=== PATIENT | female | born 1995 | race Caucasian/White ===

== ENCOUNTER 2017-04-07 23:12 | Emergency (ER) | payer MEDICAID ==
[~2017-04-07] VITALS: Ht 170.2 cm; Wt 75.0 kg
[2017-04-07 23:15] VITALS: BP 179/108; PULSE 64; RESP 16; TEMP 99.1; O2SAT 98
[2017-04-07 23:45] VITALS: RESP 18; O2SAT 98
[2017-04-07] MEDS ORDERED: SODIUM CHLORIDE 0.9% FLUSH 10 ML FLUSH IVF PRN (23:45)
[2017-04-07 23:58] LABS: AUTOMATED NEUTROPHIL # 4.5 TH/MM3 (1.8-7.7); BASOPHIL # 0.1 TH/MM3 (0-0.2); BASOPHIL % 0.7 % (0.0-2.0); EOSINOPHIL # 0.2 TH/MM3 (0-0.4); EOSINOPHIL % 2.3 % (0.0-4.0); HEMATOCRIT 34.9 % (35.0-46.0); HEMO FLAGS DIFF FINAL; LYMPH % 34.7 % (9.0-44.0); LYMPHOCYTE # 2.8 TH/MM3 (1.0-4.8); MEAN CELL VOLUME 84.9 FL (80.0-100.0); MEAN CORPUSCULAR HEMOGLOBIN 28.4 PG (27.0-34.0); MEAN CORPUSCULAR HGB CONC 33.5 % (32.0-36.0); MONO % 6.5 % (0.0-8.0); NEUT % 55.8 % (16.0-70.0); PLATELET COUNT 272 TH/MM3 (150-450); RED BLOOD COUNT 4.11 MIL/MM3 (4.00-5.30); RED CELL DISTRIBUTION WIDTH 16.3 % (11.6-17.2); WHITE BLOOD COUNT 8.1 TH/MM3 (4.0-11.0)
[2017-04-08 00:16] LABS: APTT (PATIENT) 26.3 SEC (24.3-30.1); INTERNATIONAL NORMALIZED RATIO 0.9 RATIO; PROTHROMBIN TIME - PATIENT 9.9 SEC (9.8-11.6)
[2017-04-08 00:24] LABS: ALT (GPT) 29 U/L (10-53); ANION GAP 9 MEQ/L (5-15); AST (GOT) 19 U/L (15-37); BICARBONATE 27.9 MEQ/L (21.0-32.0); BLOOD UREA NITROGEN 18 MG/DL (7-18); CHLORIDE 106 MEQ/L (98-107); GLOMERULAR FILTRATION RATE 57 ML/MIN (>89); POTASSIUM 3.8 MEQ/L (3.5-5.1); SODIUM (NA) 143 MEQ/L (136-145)
[2017-04-08 00:25] LABS: ALKALINE PHOSPHATASE 77 U/L (45-117); TOTAL BILIRUBIN ADULT 0.1 MG/DL (0.2-1.0)
--- NOTE | 2017-04-08 00:25 | RADRPT ---
EXAM DATE/TIME: 04/07/2017 23:52 [place] COMPARISON: No previous studies available for comparison. INDICATIONS : Chest pain. MEDICAL HISTORY : None. SURGICAL HISTORY : None. ENCOUNTER: Initial ACUITY: 1 day PAIN SCORE: 0/10 LOCATION: Bilateral chest FINDINGS: A single view of the chest demonstrates the lungs to be symmetrically aerated without evidence of mas s, infiltrate or effusion. The cardiomediastinal contours are unremarkable. Osseous structures are intact. CONCLUSION: The lungs are clear. Miko Rutledge MD on April 08, 2017 at 0:22 Board Certified Radiologist. This report was verified electronically.
[2017-04-08 00:26] LABS: CREATINE KINASE 92 U/L (26-192)
--- NOTE | 2017-04-08 01:15 | PD ---
HPI Chief Complaint: Chest Pain Time Seen by Provider: 23:42 Travel History International Travel<30 days: No Contact w/Intl Traveler<30days: No Traveled to known affect area: No History of Present Illness HPI C/O PALPITATIONS, ONSET SEVERAL HOURS AGO LASTED A FEW MINUTES DURING WHICH SHE DEVELOPED SOME CHEST PRESSURE, NO CHEST DISCOMFORT NOW, NO PALPITATIONS NOW BUT WANTED TO GET EVALUATED...PER PATIENT SHE DELIVERED ABOUT 3 MONTHS AGO OR SO. PFSH Past Medical History Kidney Stones: Yes Immunizations Current: Yes ?: Not LMP: 5 WEEKS AGO Social History Alcohol Use: No Tobacco Use: No Substance Use: No Allergies-Medications (Allergen,Severity, Reaction): Coded Allergies: No Known Allergies (Unverified , 04/07/17) Review of Systems Except as stated in HPI: all other systems reviewed are Neg Cardiovascular: Positive: Palpitations Physical Exam Narrative GENERAL: SKIN: Warm and dry. HEAD: Atraumatic. Normocephalic. EYES: Pupils equal and round. No scleral icterus. No injection or drainage. ENT: No nasal bleeding or discharge. Mucous membranes pink and moist. NECK: Trachea midline. No JVD. CARDIOVASCULAR: Regular rate and rhythm. RESPIRATORY: No accessory muscle use. Clear to auscultation. Breath sounds equal bilaterally. GASTROINTESTINAL: Abdomen soft, non-tender, nondistended. Hepatic and splenic margins not palpable. MUSCULOSKELETAL: Extremities without clubbing, cyanosis, or edema. No obvious deformities. NEUROLOGICAL: Awake and alert. No obvious cranial nerve deficits. Motor grossly within normal limits. Five out of 5 muscle strength in the arms and legs. Normal speech. PSYCHIATRIC: Appropriate mood and affect; insight and judgment normal. Data Data Last Documented VS Vital Signs Date Time Temp Pulse Resp B/P Pulse Ox O2 Delivery O2 Flow Rate FiO2 04/07/17 23:45 98 Nasal Cannula 2 04/07/17 23:45 18 04/07/17 23:20 80 04/07/17 23:15 99.1 179/108 Orders Electrocardiogram (04/07/17 23:43) Ckmb (Isoenzyme) Profile (04/07/17 23:43) Complete Blood Count With Diff (04/07/17 23:43) Comprehensive Metabolic Panel (04/07/17 23:43) Prothrombin Time / Inr (Pt) (04/07/17 23:43) Act Partial Throm Time (Ptt) (04/07/17 23:43) Troponin I (04/07/17 23:43) Lipase (04/07/17 23:43) Ecg Monitoring (04/07/17 23:43) Bilateral Bp Monitoring (04/07/17 23:43) Iv Access Insert/Monitor (04/07/17 23:43) Oximetry (04/07/17 23:43) Oxygen Administration (04/07/17 23:43) Sodium Chloride 0.9% Flush (Ns Flush) (04/07/17 23:45) Chest, Single Ap (04/07/17 23:49) Ed Urine Pregnancytest Poc (04/07/17 23:49) Drug Screen, Random Urine (04/07/17 23:49) Alcohol (Ethanol) (04/07/17 23:49) Salicylates (Aspirin) (04/07/17 23:49) Tylenol (Acetaminophen) (04/07/17 23:49) Labs Laboratory Tests Test 04/07/17 23:40 White Blood Count 8.1 TH/MM3 Red Blood Count 4.11 MIL/MM3 Hemoglobin 11.7 GM/DL Hematocrit 34.9 % Mean Corpuscular Volume 84.9 FL Mean Corpuscular Hemoglobin 28.4 PG Mean Corpuscular Hemoglobin 33.5 % Concent Red Cell Distribution Width 16.3 % Platelet Count 272 TH/MM3 Mean Platelet Volume 8.9 FL Neutrophils (%) (Auto) 55.8 % Lymphocytes (%) (Auto) 34.7 % Monocytes (%) (Auto) 6.5 % Eosinophils (%) (Auto) 2.3 % Basophils (%) (Auto) 0.7 % Neutrophils # (Auto) 4.5 TH/MM3 Lymphocytes # (Auto) 2.8 TH/MM3 Monocytes # (Auto) 0.5 TH/MM3 Eosinophils # (Auto) 0.2 TH/MM3 Basophils # (Auto) 0.1 TH/MM3 CBC Comment DIFF FINAL Differential Comment Prothrombin Time 9.9 SEC Prothromb Time International 0.9 RATIO Ratio Activated Partial 26.3 SEC Thromboplast Time Sodium Level 143 MEQ/L Potassium Level 3.8 MEQ/L Chloride Level 106 MEQ/L Carbon Dioxide Level 27.9 MEQ/L Anion Gap 9 MEQ/L Blood Urea Nitrogen 18 MG/DL Creatinine 1.17 MG/DL Estimat Glomerular Filtration 57 ML/MIN Rate Random Glucose 90 MG/DL Calcium Level 10.0 MG/DL Total Bilirubin 0.1 MG/DL Aspartate Amino Transf 19 U/L (AST/SGOT) Alanine Aminotransferase 29 U/L (ALT/SGPT) Alkaline Phosphatase 77 U/L Total Creatine Kinase 92 U/L Troponin I LESS THAN 0.02 NG/ML Total Protein 8.2 GM/DL Albumin 4.4 GM/DL Lipase 134 U/L MDM Medical Decision Making Medical Screen Exam Complete: Yes Emergency Medical Condition: Yes Medical Record Reviewed: Yes Interpretation(s) SINUS IZZY 56, NL INTERVALS, IRBBB PATTERN...NO STEMI PATTERN NOTED Differential Diagnosis ATYPICAL LA V AFIB/AFLUTTER V ANEMIA V DEHYDRATION V PNA VS PTX VS ELECTROLYTE ABNL Narrative Course PATIENT REMAINED STABLE AND WITH VSS. DURING OBSERVATION PERIOD NO DYSRHYTHMIAS OBSERVED WHILE ON MONITOR...NO E/O ANEMIA/PNA/PTX/ELECTROLYTE ABNL AT THIS POINT ONLY E/O DEHYDRATION WHICH WAS REPLACED WITH 1 L NS. ADVISED PATIENT TO FOLLOW UP WITH PCP FOR REFERRAL TO [facility] FOR ECHO/HOLTER MONITOR EVALUATION, PATIENT ACKNOWLEDGE PLAN. Diagnosis Primary Impression: PALPITATIONS RESOLVED Additional Impression: DEHYDRATION Patient Instructions: Dehydration (ED), General Instructions, Palpitations (ED) Disposition: 01 DISCHARGE HOME Condition: Stable Edwin Lara MD Apr 08, 2017 01:15
--- NOTE | 2017-04-08 23:16 | EKG ---
Date Performed: 04/07/2017 Time Performed: 23:27:32 PTAGE: 21 years EKG: SINUS BRADYCARDIA INCOMPLETE RIGHT BUNDLE BRANCH BLOCK BORDERLINE ECG NO PREVIOUS TRACING DOCTOR: Jean-Claude Ruiz Interpretating Date/Time 04/08/2017 23:14:19
[2017-04-09 01:16] LABS: ACETAMINOPHEN LESS THAN 2.0 MCG/ML (10.0-30.0)
== END 2017-04-08 03:43 | disposition home or self-care (01) ==
LOC: NEPC 23:12
DX: R00.2 Palpitations (principal); E86.0 Dehydration; I45.10 Unspecified right bundle-branch block
CPT/HCPCS: 71010; 80053; 80307; 82550; 83690; 84484; 84703; 85025; 85610; 85730; 93005